=== PATIENT | male | born 1965 | race Caucasian/White ===

== ENCOUNTER 2020-07-07 10:56 | Outpatient (CLI) | payer MEDICARE ==
[2020-07-07 11:54] LABS: BASOPHILS # (AUTO) 0.1 /CMM (0.0-0.2); BASOPHILS % (AUTO) 0.5 % (0.0-2.0); EOSINOPHILS % (AUTO) 1.9 % (0.0-6.0); HEMATOCRIT 45 % (39-51); HEMOGLOBIN 14.9 g/dL (13.5-17.5); LYMPHOCYTES # (AUTO) 1.5 /CMM (0.8-4.8); LYMPHOCYTES % (AUTO) 15.5 % (20.0-44.0); MEAN CORPUSCULAR HGB CONC 33 g/dl (31.0-36.0); MEAN CORPUSCULAR VOLUME 100 fL (80-96); MONOCYTES # (AUTO) 0.7 /CMM (0.1-1.30); MONOCYTES % (AUTO) 7.2 % (2.0-12.0); NEUTROPHILS # (AUTO) 7.3 /CMM (1.8-8.9); NEUTROPHILS % (AUTO) 74.9 % (43.0-81.0); PLATELET COUNT (AUTO) 205 /CMM (150-450); RED BLOOD CELL COUNT(AUTO) 4.46 MIL/uL (4.5-6.0); WHITE BLOOD COUNT (AUTO) 9.8 K/uL (4.3-11.0)
[2020-07-07 12:36] LABS: ALANINE AMINOTRANSFERASE 20 U/L (12-78); ALBUMIN 3.6 g/dL (3.4-5.0); ALKALINE PHOSPHATASE 69 U/L (46-116); ASPARTATE AMINOTRANSFERASE 18 U/L (15-37); BILIRUBIN,TOTAL 0.6 mg/dL (0.2-1.0); CARBON DIOXIDE 31 mmol/L (21-32); CHLORIDE 105 mmol/L (98-107); CREATININE 1.5 mg/dL (0.6-1.3); GLUCOSE 105 mg/dL (74-106); PHOSPHORUS 3.3 mg/dL (2.5-4.9); POTASSIUM 4.1 mmol/L (3.5-5.1); SODIUM SERUM 145 mmol/L (136-145); TOTAL PROTEIN, SERUM 6.3 g/dL (6.4-8.2); UREA NITROGEN, BLOOD 20 mg/dL (7-18)
[2020-07-07 13:12] LABS: C-REACTIVE PROTEIN < 0.2 mg/dL (0.0-0.9)
[2020-07-07 13:33] LABS: URINE TOTAL PROTEIN 27.3 mg/dL (0-11.9)
[2020-07-07 13:34] LABS: BILIRUBIN,URINE NEGATIVE (NEGATIVE); COLOR,URINE YELLOW (YELLOW); LEUKOCYTE ESTERASE ,URINE NEGATIVE (NEGATIVE); NITRITE, URINE NEGATIVE (NEGATIVE); PH,URINE 6.5 (5.0-8.0); PROTEIN,URINE NEGATIVE (NEGATIVE); UGLUCOSE NEGATIVE (NEGATIVE); UROBILINOGEN,URINE 0.2 EU/dL (0.2)
[2020-07-07 14:43] LABS: BACTERIA,URINE Few /HPF (None Seen); WBC,URINE 0-2 /HPF (0-3)
[2020-07-07 14:44] LABS: SQUAMOUS EPITHELIAL CELL,UR Rare /HPF (None Seen)
== END 2020-07-07 23:59 | disposition home or self-care (01) ==
LOC: MSC 10:56
PROVIDERS: ATTEND Internal Medicine
DX: Z48.22 Encounter for aftercare following kidney transplant (principal); Z48.298 Encounter for aftercare following other organ transplant; F41.9 Anxiety disorder, unspecified; N43.3 Hydrocele, unspecified; I48.0 Paroxysmal atrial fibrillation; Z79.899 Other long term (current) drug therapy; I10 Essential (primary) hypertension; Z86.19 Personal history of other infectious and parasitic diseases; Z87.09 Personal history of other diseases of the respiratory system
CPT/HCPCS: 36415; 80053; 80197; 81001; 82043; 82306; 82570; 83735; 84100; 84155; 85025; 85652; 86140; G0463

== ENCOUNTER → 2021-04-07 | Outpatient (CLI) | payer MEDICARE | END | disposition home or self-care (01) | LOC: MSC 14:45 | PROVIDERS: ATTEND Internal Medicine | DX: Z51.89 Encounter for other specified aftercare (principal); Z94.0 Kidney transplant status; Z94.83 Pancreas transplant status; I10 Essential (primary) hypertension; I48.0 Paroxysmal atrial fibrillation; N43.3 Hydrocele, unspecified; F41.9 Anxiety disorder, unspecified; K20.80 Other esophagitis without bleeding; Z79.52 Long term (current) use of systemic steroids; Z79.82 Long term (current) use of aspirin; Z79.899 Other long term (current) drug therapy ==

== ENCOUNTER → 2021-07-20 | Outpatient (CLI) | payer MEDICARE | END | disposition home or self-care (01) | LOC: MSC 12:15 | PROVIDERS: ATTEND Internal Medicine | DX: I10 Essential (primary) hypertension (principal); Z94.0 Kidney transplant status; Z94.83 Pancreas transplant status; Z79.52 Long term (current) use of systemic steroids; I48.0 Paroxysmal atrial fibrillation; Z79.82 Long term (current) use of aspirin; N43.3 Hydrocele, unspecified; F41.9 Anxiety disorder, unspecified; K22.10 Ulcer of esophagus without bleeding; Z86.19 Personal history of other infectious and parasitic diseases; Z79.899 Other long term (current) drug therapy ==

== ENCOUNTER 2022-07-29 14:00 | Outpatient (CLI) | payer MEDICARE | END 2022-07-29 23:59 | disposition home or self-care (01) | LOC: MSC 14:00 | PROVIDERS: ATTEND Internal Medicine | DX: F39 Unspecified mood [affective] disorder (principal); F91.8 Other conduct disorders; F41.9 Anxiety disorder, unspecified; R05.3 Chronic cough; Z94.0 Kidney transplant status; Z94.83 Pancreas transplant status; I10 Essential (primary) hypertension; I48.0 Paroxysmal atrial fibrillation; N43.3 Hydrocele, unspecified; K20.80 Other esophagitis without bleeding ==

== ENCOUNTER → 2022-08-05 | Outpatient (CLI) | payer MEDICARE | END | disposition home or self-care (01) | LOC: MSC 16:00 | PROVIDERS: ATTEND Internal Medicine | DX: R55 Syncope and collapse (principal); W19.XXXA Unspecified fall, initial encounter; R07.81 Pleurodynia; R05.3 Chronic cough; F91.9 Conduct disorder, unspecified; F39 Unspecified mood [affective] disorder; F41.9 Anxiety disorder, unspecified; I10 Essential (primary) hypertension; Z94.0 Kidney transplant status; Z94.83 Pancreas transplant status; I48.0 Paroxysmal atrial fibrillation; N43.3 Hydrocele, unspecified; K20.80 Other esophagitis without bleeding; Z86.19 Personal history of other infectious and parasitic diseases ==

== ENCOUNTER → 2022-08-19 | Outpatient (CLI) | payer MEDICARE | END | disposition home or self-care (01) | LOC: MSC 14:00 | PROVIDERS: ATTEND Internal Medicine | DX: R55 Syncope and collapse (principal); F91.9 Conduct disorder, unspecified; F39 Unspecified mood [affective] disorder; F41.9 Anxiety disorder, unspecified; I10 Essential (primary) hypertension; Z94.0 Kidney transplant status; Z94.83 Pancreas transplant status; I48.0 Paroxysmal atrial fibrillation; N43.3 Hydrocele, unspecified; K20.80 Other esophagitis without bleeding; Z86.19 Personal history of other infectious and parasitic diseases ==

== ENCOUNTER → 2022-09-13 | Outpatient (CLI) | payer MEDICARE | END | disposition home or self-care (01) | LOC: CT 10:08 | PROVIDERS: ATTEND Internal Medicine | DX: S06.0XAA Concussion with loss of consciousness status unknown, initial encounter (principal); R51.9 Headache, unspecified; X58.XXXA Exposure to other specified factors, initial encounter; Y93.89 Activity, other specified; Y92.89 Other specified places as the place of occurrence of the external cause; Y99.8 Other external cause status | CPT/HCPCS: 70450-TC ==

== ENCOUNTER 2022-09-14 15:30 | Outpatient (CLI) | payer MEDICARE | END 2022-09-14 23:59 | disposition home or self-care (01) | LOC: MSC 15:30 | PROVIDERS: ATTEND Internal Medicine | DX: M54.50 Low back pain, unspecified (principal); T86.19 Other complication of kidney transplant; Z94.0 Kidney transplant status; R55 Syncope and collapse; F91.9 Conduct disorder, unspecified; F39 Unspecified mood [affective] disorder; F41.9 Anxiety disorder, unspecified; I10 Essential (primary) hypertension; Z94.83 Pancreas transplant status; I48.0 Paroxysmal atrial fibrillation; N43.3 Hydrocele, unspecified; K20.80 Other esophagitis without bleeding; Z86.19 Personal history of other infectious and parasitic diseases ==

== ENCOUNTER → 2022-09-28 | Outpatient (CLI) | payer MEDICARE | END | disposition home or self-care (01) | LOC: MSC 14:30 | PROVIDERS: ATTEND Internal Medicine | DX: M25.512 Pain in left shoulder (principal); S32.009D Unspecified fracture of unspecified lumbar vertebra, subsequent encounter for fracture with routine healing; R60.0 Localized edema; N17.8 Other acute kidney failure; Z94.0 Kidney transplant status; R55 Syncope and collapse; F91.9 Conduct disorder, unspecified; F39 Unspecified mood [affective] disorder; F41.9 Anxiety disorder, unspecified; I10 Essential (primary) hypertension; Z94.83 Pancreas transplant status; I48.0 Paroxysmal atrial fibrillation; N43.3 Hydrocele, unspecified; K20.80 Other esophagitis without bleeding; Z86.19 Personal history of other infectious and parasitic diseases ==

== ENCOUNTER 2022-10-04 09:30 | Outpatient (CLI) | payer MEDICARE | END 2022-10-04 23:59 | disposition home or self-care (01) | LOC: MSC 09:30 | PROVIDERS: ATTEND Internal Medicine | DX: R60.0 Localized edema (principal); S32.009D Unspecified fracture of unspecified lumbar vertebra, subsequent encounter for fracture with routine healing; M25.512 Pain in left shoulder; N17.8 Other acute kidney failure; Z94.0 Kidney transplant status; R55 Syncope and collapse; F91.9 Conduct disorder, unspecified; F39 Unspecified mood [affective] disorder; F41.9 Anxiety disorder, unspecified; I10 Essential (primary) hypertension; Z94.83 Pancreas transplant status; I48.0 Paroxysmal atrial fibrillation; N43.3 Hydrocele, unspecified; K20.80 Other esophagitis without bleeding; Z86.19 Personal history of other infectious and parasitic diseases ==

== ENCOUNTER 2023-02-23 11:42 | Outpatient (CLI) | payer MEDICARE | END 2023-02-23 23:59 | disposition home or self-care (01) | LOC: MRI 11:42 | PROVIDERS: ATTEND Anesthesiology | DX: S09.90XA Unspecified injury of head, initial encounter (principal); I67.82 Cerebral ischemia; R90.82 White matter disease, unspecified; X58.XXXA Exposure to other specified factors, initial encounter; Y93.89 Activity, other specified; Y92.89 Other specified places as the place of occurrence of the external cause; Y99.8 Other external cause status | CPT/HCPCS: 70551-TC; 70553-TC ==

== ENCOUNTER 2023-03-07 10:29 | Outpatient (CLI) | payer MEDICARE | END 2023-03-07 23:59 | disposition home or self-care (01) | LOC: MSC 10:29 | PROVIDERS: ATTEND Anesthesiology | DX: S22.079D Unspecified fracture of T9-T10 vertebra, subsequent encounter for fracture with routine healing (principal); M54.50 Low back pain, unspecified; M62.830 Muscle spasm of back; M40.299 Other kyphosis, site unspecified; Z79.891 Long term (current) use of opiate analgesic; H93.11 Tinnitus, right ear; Z94.0 Kidney transplant status; Z94.83 Pancreas transplant status; Z79.899 Other long term (current) drug therapy ==